=== PATIENT | male | born 1955 | race Asian ===

== ENCOUNTER 2019-05-20 07:01 | Day surgery (SDC) | payer OTHER ==
[2019-05-19 14:36] VITALS: BMI 23.6
[~2019-05-20] VITALS: Ht 157.5 cm; Wt 61.4 kg
[2019-05-20] MEDS ORDERED: CAPE500T17 PO (07:29)
[2019-05-20] MEDS ORDERED: LORA10TA3 PO (07:30)
[2019-05-20 07:48] VITALS: BP 158/93; PULSE 72; RESP 18; Ht 157.5 cm; Wt 61.4 kg
[2019-05-20] MEDS ORDERED: HEPARIN 1000 UNITS/ML 10 ML INJ ONE (08:27)
[2019-05-20] MEDS ORDERED: FENTAnyl 50 MCG/ML VIAL ONE (08:27)
[2019-05-20] MEDS ORDERED: LIDOCAINE 1% (MDV) 20 ML INJ ONE (08:27)
[2019-05-20] MEDS ORDERED: MIDAZOLAM 1 MG/ML 2 ML INJ ONE (08:27)
[2019-05-20] MEDS ORDERED: CEFAZOLIN 1 GM/50 ML (PMX) 50 ML IVPB ONE (08:28)
[2019-05-20] MEDS ORDERED: LIDOCAINE 2%/EPI MPF (SDV) 20 ML VIAL ONE (08:46)
[2019-05-20] MEDS ORDERED: LIDOCAINE 1%/EPI (1:100,000) (MDV) 20 ML ONE (08:47)
[2019-05-20 10:30] VITALS: BP 148/80; PULSE 74; RESP 18
--- NOTE | 2019-05-20 14:08 | RADRPT ---
PROCEDURE: FLUOROSCOPIC AND ULTRASONOGRAPHIC-GUIDED PLACEMENT OF RIGHT CHEST PORT. CLINICAL INDICATION: Central access for chemotherapy purposes. TECHNIQUE: Informed consent was obtained. The procedure, risks, benefits, complications and alternatives were e xplained to the patient. Risks including bleeding, infection, and pneumothorax were explained. The p atient understood and was willing to proceed. A procedural pause was performed. The patient's name, d ate of , and procedure to be performed were verified. The central line was inserted with all el ements of maximal sterile barrier technique. All of the following were used: head covering, facial ma sk, sterile gown, sterile gloves, a large sterile sheet, hand hygiene, and 2% chlorhexidine for cuta neous antisepsis. The right neck and anterior/superior chest wall were prepped and draped in usual sterile fashion. Limited sonography of the right neck was then performed. Noted is a patent right internal jugular vei n. Following the local injection of 1% lidocaine, the right internal jugular vein was punctured under so nographic guidance with a 20-gauge needle through which a 0.018 inch floppy tip guidewire was advance d into the superior vena cava, then the right atrium with fluoroscopic guidance. The tract was dila shanell to 8 Uzbek and the wire was then replaced with a 0.035 in guidewire. A site just inferior to the clavicle in the superior anterior right chest wall was localized. One per cent lidocaine was used as local anesthesia. A transverse 2.5 cm incision was made utilizing a 15 karson de scalpel. Utilizing blunt dissection a subcutaneous pocket was created inferior to the incision. Th e cavity was flushed with approximately 40 cc of PB antibiotic solution. The catheter was tunneled underneath the skin from the newly created pocket to the puncture site in t he neck. The central line catheter was pulled through the tract. Serial dilatation was then performed and a 8 Uzbek peel away sheath was introduced. The catheter was then advanced through the peel-away sheath until the tip was positioned in the right atrium. The peel-away sheath was removed. The salomón ter was flushed, clamped, and cut to the appropriate length. The 8 Uzbek catheter was then connected to the [employer] power port. The port was then placed in to the pocket. Prior to closing the instrument and sponge count was verified and was correct. The sub cutaneous tissue was closed with 3-0 Vicryl interrupted suture. The skin at the site of the pocket an d in the neck was closed with 4-0 Vicryl suture in a running subcuticular technique. The port was flu shed with 1500 units of heparin in 1.5 cc utilizing a Vital needle. The needle was removed. A dressin g was applied. Specimens: None. Blood loss: 5 ml. Complications: None. Anesthesia: Local and moderate sedation. Graft/Implant: Right chest port. COMPARISON: None. FINDINGS: Final radiographic images demonstrate the tip of the catheter in the upper right atrium. A total of 0.4 minutes of fluoroscopy time was used. 4 images of the chest were obtained with the image intensi fier. IMPRESSION: Successful ultrasonographic and fluoroscopic guided placement of right chest power port. RPTAT: QQ Physician Teri Date Time Electronically viewed and signed by Physician Teri on 05/20/2019 14:08 Marci/
== END 2019-05-20 12:17 | disposition home or self-care (01) ==
LOC: SDS 07:01
PROVIDERS: ATTEND Internal Medicine Hematology & Oncology
DX: C18.3 Malignant neoplasm of hepatic flexure (principal)
CPT/HCPCS: 36561; 76705; C1788; J0690; J1644; J2250; J3010; Z7610

== ENCOUNTER 2019-05-30 07:04 | Day surgery (SDC) | payer OTHER ==
[~2019-05-30] VITALS: Ht 154.9 cm; Wt 61.2 kg
[~2019-05-30 07:04] MED LIST: CAPE500T17 PO; LORA10TA3 PO
[2019-05-30 08:19] VITALS: Ht 154.9 cm; Wt 61.2 kg
[2019-05-30 08:22] VITALS: BP 163/92; PULSE 68; RESP 16
[2019-05-30] MEDS: SOD CHLORIDE 0.9% 1,000 ML IV SCH ×2 (09:12→12:11)
[2019-05-30] MEDS ORDERED: IOHEXOL 300MG/ML 150 ML BTL ONE (10:22)
[2019-05-30] MEDS ORDERED: FENTAnyl 50 MCG/ML VIAL ONE (10:43)
[2019-05-30 12:02] VITALS: BP 148/73; PULSE 54; RESP 18
[2019-05-30] MEDS ORDERED: ACETAMINOPHEN 325 MG TAB PO ONE (15:00)
== END 2019-05-30 14:50 | disposition home or self-care (01) ==
LOC: SDS 07:04 → EDUNIT# 09:00 → SDS 14:50
PROVIDERS: ATTEND Internal Medicine Hematology & Oncology
DX: C22.7 Other specified carcinomas of liver (principal); C18.9 Malignant neoplasm of colon, unspecified; I10 Essential (primary) hypertension
CPT/HCPCS: 47000; 77012; 88307; 88313; J3010; Q9967; Z7610

== ENCOUNTER 2019-06-13 06:39 | Day surgery (SDC) | payer OTHER ==
[~2019-06-13] VITALS: Ht 157.5 cm; Wt 60.4 kg
[2019-06-13] MEDS ORDERED: ALLER-TEC (09:05)
[2019-06-13 09:08] VITALS: Ht 157.5 cm; Wt 60.4 kg
--- NOTE | 2019-06-13 09:36 | PREAC ---
Date/Time of Note Date/Time of Note DATE: 06/13/19 TIME: 09:35 Anesthesia Eval and Record Evaluation Time Pre-Procedure Interview DATE: 06/13/19 TIME: 09:35 Age 63 Sex male NPO: 8 hrs Preoperative diagnosis DUODENAL MASS, COLON CANCER Planned procedure EGD, COLONOSCOPY WITH BIOPSIES Past Medical History Past Medical History: Includes Cardio: HTN Surgery & Anesthesia Issues No known issue Meds Anticoagulation: No Beta Chip within 24 hr: No Reason Beta Chip not given: Pt. not on B-Chip Reported Medications [Aller-Codi] No Conflict Check 06/13/19 Capecitabine* (Xeloda*) 500 Mg Tablet, 500 MG PO BID, TAB 05/20/19 Discontinued Reported Medications Loratadine* (Loratadine*) 10 Mg Tablet, 10 MG PO DAILY PRN for ALLERGIC REACTION , #30 TAB 05/20/19 Meds reviewed: Yes Allergies Coded Allergies: No Known Allergy (Unverified , 05/30/19) Allergies Reviewed: Yes Labs/Studies Labs Reviewed: Reviewed by anesthesiologist test: N/A Pre-procedure Exam Airway: Adequate mouth opening, Adequate thyromental dist Mallampati: Mallampati II Teeth: Normal Lung: Normal Heart: Normal ASA Physical Status ASA physical status: 2 Emergency: None Planned Anesthetic General/MAC: MAC Planned Pain Management Parenteral pain med Pre-operative Attestations Prior to commencing anesthesia and surgery, the patient was re-evaluated, there was verification of: *The patient's identity *The results of appropriate recent lab work and preoperative vital signs *The above evaluation not changing prior to induction *Anesthetic plan, risk benefits, alternative and complications discussed with patient/family; questions answered; patient/family understands, accepts and wishes to proceed. Jatin Fagan M.D. Jun 13, 2019 09:36
[2019-06-13] MEDS ORDERED: LIDOCAINE 100 MG SYRINGE ONE (09:38)
[2019-06-13] MEDS ORDERED: FENTAnyl 50 MCG/ML VIAL ONE (09:38)
[2019-06-13] MEDS ORDERED: PROPOFOL 40 ML ONE (09:38)
[2019-06-13] MEDS ORDERED: PROPOFOL 200 MG INJ ONE (09:38)
[2019-06-13 09:50] VITALS: BP 163/88; PULSE 59; RESP 18
--- NOTE | 2019-06-13 10:27 | PAC ---
Date/Time of Note Date/Time of Note DATE: 06/13/19 TIME: 10:27 Post-Anesthesia Notes Post-Anesthesia Note Last documented vital signs HR 78 RR 14 BP 114/57 T 98 Activity: WNL Respiratory function: WNL Cardiovascular function: WNL Mental status: Baseline Pain reasonably controlled: Yes Hydration appropriate: Yes Nausea/Vomiting absent: Yes Jatin Fagan M.D. Jun 13, 2019 10:27
== END 2019-06-13 11:58 | disposition home or self-care (01) ==
LOC: GIL 06:39
PROVIDERS: ATTEND Internal Medicine Gastroenterology
DX: K64.8 Other hemorrhoids (principal); Z85.038 Personal history of other malignant neoplasm of large intestine; I10 Essential (primary) hypertension
CPT/HCPCS: 43235; 45380; 88305; J2001; J3010; Z7610